=== PATIENT | female | born 1975 | race Caucasian/White ===

== ENCOUNTER → 2017-11-16 06:45 | Outpatient (CLI) | payer BC, SELFPAY ==
--- NOTE | 2017-11-16 13:10 | STRESSREP ---
Stress Test Report Exercise myocardial perfusion stress test. 42-year-old male with a history of chest pain. Stress protocol: The resting EKG demonstrated sinus rhythm with a rate of 65 bpm normal intervals and noted resting blood pressure is 130/70 mmHg. The patient exercised according to the Ashkan protocol for total duration of 5 minutes and 30 seconds completing 2 minutes and 30 seconds into stage II of the Ashkan protocol. The maximum heart rate attained was 169 bpm which was 95% of the maximum predicted heart rate the maximum workload attained was 7 metabolic equivalents. At rest there were no ST or T-wave changes noted suggest ischemia and at peak exercise no ST or T-wave changes were noted suggest ischemia. The resting blood pressure is 130/70 with a peak blood pressure 168/68 . Myocardial perfusion protocol 10.3 mCi of technetium 99m sestamibi was injected at rest. The patient exercised according to the Ashkan protocol for 5 minutes and 30 seconds attaining 7 metabolic equivalents. Size 44.8 mCi of technetium 99m sestamibi was injected. Stress images were obtained. Stress and rest images were reconstructed and compared in the short axis vertical long and horizontal long axis. Gated images were also obtained. Perfusion SPECT analysis. View of the stress images demonstrate normal uptake of tracer noted in all areas of the myocardium at the stress and resting images do not demonstrate any significant changes to suggest ischemia. The level of exercise however was low enough for his age that it may affect sensitivity for detection of ischemia. Gated SPECT analysis: The gated ejection fraction is noted to be 60%. Conclusion: Exercise myocardial perfusion stress test with no obvious ischemia noted at a moderate workload. Preserved ejection fraction.
== END ==
PROVIDERS: Family Provider Internal Medicine; PCP Internal Medicine; Visit Provider Internal Medicine
DX: R07.9 Chest pain, unspecified (principal); M79.602 Pain in left arm
CPT/HCPCS: 78452; 93017; A9500; A4216

== ENCOUNTER → 2019-07-18 10:47 | Outpatient (CLI) | payer BC, SELFPAY ==
--- NOTE | 2019-07-18 | BRBX_PTH ---
PATIENT: CHEYENNE INGRAM LOC: [facility] U#:[id number] AGE/SX: 49/F ROOM: RE07/18/[address]: Dr. Mulu Guillermo MD : 1975 BED: DIS: SPEC #: [id number] RECD: 07/18/19 13:16 STATUS: ARI RE #: [id number] SIDDHARTH: 07/18/19 00:[address]: Mulu Guillermo DEPT: SURGICAL PATHOLOGY RECD BY: Shayne Rehman ENTERED: 07/18/19 13:16 SP TYPE: BREAST BX OT DR: Dr. Mira Blankenship MD Tissues: Right breast, NOS Procedures: Surgery Specimen Level IV HEADER OPERATION: Right breast stereotactic biopsy PRE-OP DIAGNOSIS: Right breast oval density 12 o'clock middle depth TISSUE SUBMITTED: Right breast core tissue ISCHEMIC TIME: 1 minute FIXATION TIME: 8.5 hours MICROSCOPIC DIAGNOSIS Right breast, oval density, 12 o'clock middle depth, stereotactic core biopsy: Fatty breast tissue with focal fibrocystic changes and intraductal hyperplasia without atypia. Negative for malignancy. See comment. EDWIN:johana 07/19/19 COMMENT Correlation with clinical, radiologic findings and appropriate follow up are necessary. MICROSCOPIC DESCRIPTION Slides are reviewed. GROSS DESCRIPTION Received is one container labeled with the patient's name and not further designated. The specimen consists of multiple elongated fragments of almaguer-yellow fibroadipose tissue that in aggregate measure 5 x 3 x 0.6 cm. The entire specimen is submitted in four cassettes. / EDWIN:johana 07/18/19 TC:5 CPT: 79252
--- NOTE | 2019-07-18 16:22 | OP.PCM_ITS ---
Report of Operation Date of Procedure: 07/18/19 Pre-Operative Diagnosis: abnormal density seen on right breast mammograms Post-Operative Diagnosis: same Surgery/Procedure Performed:: right breast stereotactic biopsy Description of Surgical Findings:: centrally located right breast density Type of Anesthesia:: Local Specimen's removed: right breast tissue Estimated Blood Loss (mL): minimal Fluids Replaced: none Description of Procedure: After informed consent was given, the patient was brought into the breast biopsy suite. Appropriate time out protocol was followed. She was then placed in the prone position on the stereotactic biopsy table. The patient?s right breast was then placed in the opening at the head of the table. A marbleizing machine tender compression mammogram was then obtained in the CC view. The suspicious radiological lesion was then identified. Stereo pictures of the lesion were then taken for XYZ coordinates. The Mammotome biopsy stylus was then positioned where it would be entering into the patient?s breast. The skin at this site was then cleansed with a surgical skin preparation. The skin and subcutaneous tissues at this site were then infiltrated with 1% xylocaine. A small skin incision was made with an 11 blade scalpel. The biopsy stylus was then positioned into the patient?s breast at the proper coordinates of depth. Using the Mammotome vacuum-assist device, several core samples of breast tissue were obtained. A hemostatic marker clip was then placed into the biopsy cavity and a marbleizing machine tender film revealed that it was properly deployed. The patient was then placed in the supine position and pressure was applied to the breast until no active bleeding was noted. Steristrips were applied to reapproximate the skin. A unilateral mammogram in the CC and MLO view were then taken which revealed that the marker clip was in the same area as the previous suspicious lesion. The patient tolera nuria the procedure well and was discharged from the breast biopsy suite in good condition. - Complications none noted
== END ==
LOC: BIRAD 10:48
PROVIDERS: Family Provider Internal Medicine; PCP Internal Medicine; Referring Provider Surgery; Visit Provider Surgery
DX: R92.8 Other abnormal and inconclusive findings on diagnostic imaging of breast (principal)
CPT/HCPCS: 19081; 88305; J7050; A4648

== ENCOUNTER 2023-06-13 09:45 | Emergency (ER) | payer BC, SELFPAY ==
[2023-06-13 09:47] VITALS: BP 158/94; PULSE 86; RESP 14; TEMP 36.4; O2SAT 98; BMI 51.7
--- NOTE | 2023-06-13 10:00 | CT_ITS ---
STUDY: CTA CHEST REASON FOR EXAM: Female, 47 years old. Cough and chest pain. History of follicular lymphoma. RADIATION DOSAGE (If Supplied By Facility): CTDIvol = ( 12.66 ) mGy, DLP = ( 418.25 ) mGycm TECHNIQUE: The examination was performed with the intravenous administration of IV 100mL Isovue-370. Post-processing of the angiographic images was performed, with multiplanar reformation and 3D reconstruction. Individualized dose optimization techniques were used for this CT. COMPARISON: None. FINDINGS: A right-sided chacho catheter seen with the tip in the superior vena cava. Normal enhancement of the main pulmonary artery and right and left pulmonary arteries. Normal enhancement of the bilateral peripheral pulmonary arteries. There is no demonstrated pulmonary embolism. Normal thoracic aorta and visualized great vessels. There is no demonstrated aortic dissection. Normal heart and pericardium. Normal mediastinum. Normal hilar regions. Normal visualized trachea and bronchi. The lungs are well expanded. Normal pulmonary parenchyma. Normal pleura. Normal chest wall structures. There are mild degenerative changes of thoracic spine. Diffuse fatty infiltration of the liver. CT/CTA Chest W/WO Contrast IMPRESSION: Normal CTA chest examination, without a demonstrated pulmonary embolism or arterial dissection. Electronically Signed: Dano Zarate MD at 12:34 EDT ,
--- NOTE | 2023-06-13 10:01 | EDS_ITS ---
HPI History of Present Illness Chief Complaint: Chest Pain Narrative Narrative: 47 year-old female states that she is a chemotherapy patient for lymphoma that is diffuse, presents with chest pain that she has had over the last hour. She states she has been ill with upper respiratory infection type symptoms for the last 2 days. She did a COVID test at home that was negative. She went to see her primary care physician today, but when she was walking in, she developed chest pain that radiated towards her neck and upwards, and into her back as well. She denies any exacerbating or alleviating factors. Pain is not reproducible but she states that it just hurts. No nausea or vomiting. No diaphoresis. PFSH PFSH Allergy/AdvReac Type Severity Reaction Status Date / Time Opioids - Morphine Analogues Allergy PT UNSURE Verified 06/13/23 09:46 OF REACTION Penicillins Allergy Anaphylaxis Verified 06/13/23 09:46 Sulfa (Sulfonamide Allergy Anaphylaxis Verified 06/13/23 09:46 Antibiotics) Social History Smoking Status: Never smoker ROS ROS ED ROS Narrative Constitutional: No fever, no chills. HEENT: No sore throat. No neck pain. No loss of vision. No rhinorrhea. Cardiovascular: Positive diffuse chest pain radiating upward towards neck and into the back. No palpitations. No pedal edema. Respiratory: No cough, no shortness of breath. Abdominal: No abdominal pain. No nausea. No vomiting. Genitourinary: No dysuria. No hematuria. Musculoskeletal: No myalgias. No arthralgias. Neurologic: No headaches. No dizziness. No lightheadedness. Skin: No rash. No change in color. Psychiatric: No depression. No anxiety. EXAM Physical Exam Narrative Exam Narrative: Afebrile. Vital signs noted. HEENT: Normocephalic. Atraumatic. PERRL, EOMI. Neck soft and supple. No point tenderness or step off. Cardiovascular: Regular rate and rhythm. No murmurs, rubs, or gallops appreciated. Respiratory: No tachypnea. Lungs clear to auscultation bilaterally. Gastrointestinal: Abdomen soft, nontender, with normoactive bowel sounds. No rebound or guarding. Neurological: Awake. Alert. Nonfocal, nonlateralizing. Skin: No rash. Normal color. No pallor. Musculoskeletal: No pedal edema. Full range of motion extremities. Const Vital Signs: 06/13/23 09:47 06/13/23 10:44 06/13/23 10:44 Temperature 97.6 F L Temperature Source Oral Pulse Rate 86 87 Respiratory Rate 14 12 Respiratory Effort Blood Pressure 158/94 H 125/68 H Blood Pressure Mean 115 87 Pulse Ox 98 98 97 Oxygen Delivery Method Room Air Room Air Room Air 06/13/23 10:45 06/13/23 11:30 06/13/23 12:11 Temperature Temperature Source Pulse Rate 74 76 Respiratory Rate 16 16 Respiratory Effort Normal Non-Labored Blood Pressure 121/79 H 123/75 H Blood Pressure Mean 93 91 Pulse Ox 97 97 Oxygen Delivery Method Room Air Room Air MDM MDM MDM Narrative Medical decision making narrative: In the differential diagnosis is acute coronary syndrome versus pulmonary embolism. I have low suspicion for dissection as she has equal pulses. Chest pain work-up was pursued including EKG. For imaging I do feel that although D- dimer is being obtained, given her history, that CTA of the chest should be obtained to rule out pulmonary embolism and/or dissection. EKG was obtained and interpreted by myself independently as normal sinus rhythm at 82 bpm without ectopy or acute ST changes. No STEMI. In review of her laboratory work from today, she is neutropenic with a WBC count of 0.7. She states this is improved from before and has been through steroids and Neupogen injections. She has stopped chemotherapy over the last few months because it shut down her immune system reportedly. Hemoglobin normal at 13.0, hematocrit 40.2, platelet count normal at 253. Her D-dimer is negative at 0.29, I have low suspicion for pulmonary embolism as a cause of her pain. Sodium 137 with potassium 3.8, chloride normal at 103, BUN normal at 12 with creatinine 0.79. Glucose is appropriately elevated at 104 with a normal anion gap of 5, AST is low at 10 which I think is nonspecific and the ALT normal at 27. Her initial high-sensitivity troponin is less than 3. Delta 2-hour troponin is 0 as it is also less than 3. CTA was obtained to help rule out dissection and there is no evidence of dissection or pulmonary embolism on radiology report that was reviewed by myself. At this point in time, after Dilaudid 0.5 mg, she is feeling improved. She states that she had a coughing spell prior to her chest pain. She may have had intercostal muscle spasm or more chest wall pain. At this point in time, I feel she be discharged safely home with follow-up to her primary care provider and her oncologist. I do not feel she requires observation or admission. Additionally, I do not feel antibiotics are indicated as there is no evidence of pneumonia on her CT scan. Disposition is discharged home in stable condition. Return instructions were reviewed. History & Record Review Discussion w/independent historian: Patient Additional record(s) reviewed:: Prior ED visit and Prior labs Lab Data Attestation: I reviewed the patient's lab results. Labs: Laboratory Results - last 24 hr 06/13/23 06/13/23 10:20 12:40 WBC 0.7 L* RBC 4.43 Hgb 13.0 Hct 40.2 MCV 90.7 MCH 29.3 MCHC 32.3 RDW Std Deviation 45.2 H RDW Coeff of Payton 13.6 Plt Count 253 MPV 9.9 Immature Gran % (Auto) 0.000 Neut % (Auto) 3.1 L Lymph % (Auto) 46.2 H [place] % (Auto) 44.6 H Eos % (Auto) 4.6 Baso % (Auto) 1.5 H Absolute Neuts (auto) 0.0 L Absolute Lymphs (auto) 0.30 L Nucleated RBC % 0 Differential Comment COMMENT Diff Path Review May foll D-Dimer Quant (PE/DVT) 0.29 Sodium 137 Potassium 3.8 Chloride 103 Carbon Dioxide 29.0 Anion Gap 5 BUN 12 Creatinine 0.79 Estim Creat Clear Calc 81.53 Est GFR (MDRD) Af Amer 100 Est GFR (MDRD) Non-Af 83 BUN/Creatinine Ratio 15.3 Glucose 104 Calcium 9.0 Total Bilirubin 0.50 AST 10 L ALT 27 Alkaline Phosphatase 65 Troponin I High Sens < 3 L < 3 L Total Protein 7.0 Albumin 3.7 Globulin 3.3 Albumin/Globulin Ratio 1.1 Radiography Diagnostic Testing: Clinical Impression(s) from Imaging Studies Chest CTA 06/13/23 10:00 IMPRESSION: Normal CTA chest examination, without a demonstrated pulmonary embolism or arterial dissection. Electronically Signed: Dano Zarate MD at 12:34 EDT , Discharge Plan Triage Chief Complaint: Chest Pain ED Provider: Jacoby Miller Dx/Rx/DC Orders Clinical Impression: Neutropenia, Chest pain Instructions: Neutropenia, ED Chest Pain, Noncardiac Primary Care Provider: Mira Blankenship Referrals: Mira Blankenship MD [Primary Care Provider] - 3-5 Days if not improving Disposition Disposition: Home, Self Care
--- NOTE | 2023-06-13 10:12 | NURSING ---
NO OLD EKG
[2023-06-13] MEDS: 0.9% Normal Saline (1000mL) 1,000 ML 1000 ML IV (10:28)
[2023-06-13 10:32] LABS: Basophil# 0.01 X10^3/uL; Basophil% 1.5 % (0-1); Eosinophil# 0.03 X10^3/uL; Eosinophils% 4.6 % (0-5); Hematocrit 40.2 % (37-47); Lymphocyte % 46.2 % (19-41); Mean Corp Hgb Conc 32.3 g/dL (32-36); Mean Corpuscular Hgb 29.3 pg (27.0-32.0); Mean Corpuscular Volume 90.7 fL (81-99); Mean Platelet Vol. 9.9 fl (6.2-12.0); Monocyte# 0.29 X10^3/uL; Monocyte% 44.6 % (0-10); NRBC Flagged by Analyzer 0 % (0-5); Neutrophil # 0.02 X10^3/uL (2.7-7.7); Neutrophil % 3.1 % (47-70); POSITIVE COUNT YES; POSITIVE DIFFERENTIAL YES; POSITIVE MORPHOLOGY YES; Platelet Count 253 K/mm3 (150-450); RBC Distribution Width CV 13.6 % (11.6-14.6); RBC Distribution Width SD 45.2 fl (35.1-43.9); Red Blood Count 4.43 M/mm3 (4.2-5.4)
[2023-06-13] MEDS: HYDROmorphone 0.5 MG/0.5 ML SYRINGE IV (10:32)
[2023-06-13 10:39] LABS: Differential Indicated SCAN CRITERIA MET
[2023-06-13 10:42] LABS: D-Dimer Quantitative (DVT/PE) 0.29 FEU/ug/m (0.27-0.49)
[2023-06-13 10:44] VITALS: BP 125/68; PULSE 87; RESP 12; O2SAT 97; O2SAT 98
[2023-06-13 10:47] LABS: ALB/GLOB Ratio 1.1 RATIO (0.9-2.4); AST(SGOT) 10 U/L (15-37); Alanine Aminotransfer ALT/SGPT 27 U/L (13-56); Albumin, Serum 3.7 g/dL (3.2-5.0); Alkaline Phosphatase 65 U/L (45-117); Anion Gap 5 (5-15); BUN 12 mg/dL (7-18); BUN/Creat Ratio 15.3 RATIO (10-20); Chloride 103 mmol/L (98-107); Creatinine, Serum 0.79 mg/dL (0.55-1.02); EST Glomerular Filtration Rate 83 mL/min (>60); Est Glom Filt Rate - Afr Amer 100 mL/min (>60); Estimated Creatinine Clearance 81.53 ml/min; Globulin 3.3 g/dL (2.2-4.2); Glucose 104 mg/dL (74-106); Potassium 3.8 mmol/L (3.5-5.1); Sodium Level 137 mmol/L (136-145); Troponin-I HS (w/2H Reflex) < 3 pg/mL (3.0-54.0)
[2023-06-13 11:17] LABS: White Blood Count 0.7 K/mm3 (4.4-11.0)
[2023-06-13 11:30] VITALS: BP 121/79; PULSE 74; RESP 16; O2SAT 97
[2023-06-13 12:11] VITALS: BP 123/75; PULSE 76; RESP 16; O2SAT 97
[2023-06-13 12:27] LABS: Reflex Troponin-HS? (from REC) Y
[2023-06-13 13:01] LABS: Troponin-I HS < 3 pg/mL (3.0-54.0)
[2023-06-13 13:35] VITALS: BP 136/78; PULSE 64; RESP 14; TEMP 36.7; O2SAT 100
[2023-06-14 14:16] LABS: Pathologist Review Reviewed
== END 2023-06-13 13:50 | disposition home or self-care (01) ==
PROVIDERS: Emergency Provider Emergency Medicine; PCP Internal Medicine; Visit Provider Emergency Medicine
DX: R07.9 Chest pain, unspecified (principal); C85.90 Non-Hodgkin lymphoma, unspecified, unspecified site; D70.9 Neutropenia, unspecified; Z92.21 Personal history of antineoplastic chemotherapy
CPT/HCPCS: 36591; 71275; 80053; 84484; 85025; 85379; 93005; 96361; 96374; 99283; J7030; Q9967; A4216